=== PATIENT | female | born 1965 | race Caucasian/White ===

== ENCOUNTER 2017-06-17 21:44 | Inpatient (IN) | payer OTHER ==
[~2017-06-17] VITALS: Ht 165.1 cm; Wt 52.2 kg
[~2017-06-17 21:44] MED LIST: ARMOUR THYROID60 M1 PO; TRAMADOL HCL50 MG PO
== END 2017-06-18 06:30 | disposition home or self-care (01) | DRG 552 ==
LOC: CANRESERV 21:44 → ENRESERV 21:44 → 2SOUTH 06-18 05:17
DX: M51.26 Other intervertebral disc displacement, lumbar region (principal); Z53.9 Procedure and treatment not carried out, unspecified reason

== ENCOUNTER 2017-07-15 22:05 | Inpatient (IN) | payer OTHER ==
[~2017-07-15] VITALS: Ht 165.1 cm; Wt 61.0 kg
[2017-07-16] MEDS ORDERED: AMBIEN5 MG PO (06:03)
[2017-07-16 06:30] VITALS: BP 144/71
[2017-07-16] MEDS ORDERED: OXYCODONE-APAP1 EACH PO (09:27)
[2017-07-16] MEDS ORDERED: DIAZEPAM10 MG PO (09:27)
[2017-07-16] MEDS ORDERED: BISACODYL5 MG PO (09:27)
[2017-07-16 13:03] VITALS: BP 139/73
[2017-07-16 16:30] VITALS: BP 110/54
[2017-07-16 19:42] VITALS: BP 124/56
[2017-07-16 23:48] VITALS: BP 109/54
[2017-07-17 07:43] VITALS: BP 129/61
[2017-07-17 08:12] VITALS: BP 129/61
[2017-07-17 12:02] VITALS: BP 117/57
[2017-07-17 16:21] VITALS: BP 156/63
[2017-07-17 16:30] VITALS: BP 116/54
[2017-07-17 23:18] VITALS: BP 118/58
[2017-07-18 08:19] VITALS: BP 106/58
[2017-07-18 08:53] VITALS: BP 106/58
[2017-07-18 16:00] VITALS: BP 139/63
[2017-07-18 16:24] VITALS: BP 115/57
[2017-07-18 23:41] VITALS: BP 127/83
[2017-07-19 08:07] VITALS: BP 117/64
[2017-07-19 16:19] VITALS: BP 120/83
[2017-07-19 23:28] VITALS: BP 136/86
[2017-07-20 07:58] VITALS: BP 134/65
[2017-07-20 11:28] LABS: CREATININE 0.5 MG/DL (0.6-1.3); GFR ESTIMATE (CALCULATED) > 59 mL/min/
[2017-07-20] MEDS ORDERED: TRAMADOL HCL50 MG PO (13:33)
[2017-07-20 16:13] VITALS: BP 133/78
== END 2017-07-20 16:15 | disposition home or self-care (01) | DRG 460 ==
LOC: ENRESERV 22:05 → 2SOUTH 07-16 05:24 → ENRESERV 07-16 09:35 → 2SOUTH 07-16 10:00 → 3EAST 07-16 12:07 → 2SOUTH 07-16 13:05 → 3EAST 07-16 13:19 → 2SOUTH 07-16 14:58 → 3EAST 07-20 16:15
PROVIDERS: Neurological Surgery
DX: M51.17 Intervertebral disc disorders with radiculopathy, lumbosacral region (principal); K91.89 Other postprocedural complications and disorders of digestive system; K56.7 Ileus, unspecified; M79.7 Fibromyalgia; E03.9 Hypothyroidism, unspecified; F41.9 Anxiety disorder, unspecified; F32.9 Major depressive disorder, single episode, unspecified
CPT/HCPCS: 72100; 74018; 74021; 76000; 82565; 86850; 86900; 86901; J0690; J1100; J1170; J1885; J2250; J2405; J2710; J3010; J3480